=== PATIENT | male | born 1970 | race Two or more races ===

== ENCOUNTER 2023-06-24 20:14 | Inpatient (IN) | payer BC, OTHER ==
[~2023-06-24] VITALS: Ht 165.1 cm; Wt 65.8 kg
[2023-06-24 20:00] VITALS: BP 140/83; TEMP 98; O2SAT 99
[2023-06-24] MEDS ORDERED: REMEDY ESSENTIAL ZINC PASTE 113 GM TOP PRN (22:00)
[2023-06-24] MEDS ORDERED: ASPI81TA31 PO (23:13)
[2023-06-24] MEDS ORDERED: FLUC100T8 PO (23:13)
[2023-06-24] MEDS ORDERED: LORA0.5T48 IJ (23:13)
[2023-06-24] MEDS ORDERED: MAG-89 PO (23:13)
[2023-06-24] MEDS ORDERED: MAGN400O6 PO (23:13)
[2023-06-24] MEDS ORDERED: HYDR-4075 IVP (23:13)
[2023-06-24] MEDS ORDERED: ONDA4VIA52 IM/IV (23:13)
[2023-06-24] MEDS ORDERED: LEVE500T83 PO (23:13)
[2023-06-24] MEDS ORDERED: IPRA0.2S48 NEB (23:13)
[2023-06-24] MEDS ORDERED: ACET120S39 RC (23:13)
[2023-06-24] MEDS ORDERED: ALBU1.257 NEB (23:13)
[2023-06-24] MEDS ORDERED: ATOR40TA PO (23:13)
[2023-06-24] MEDS ORDERED: PANT40TA49 PO (23:13)
[2023-06-24] MEDS ORDERED: ACET325T53 PO (23:13)
[2023-06-24] MEDS ORDERED: ENOX40DI SQ (23:13)
[2023-06-25] MEDS ORDERED: OXYCODONE/APAP 5-325 MG TABLET PO PRN (01:45)
[2023-06-25] MEDS: OXYCODONE HCL 5 MG TABLET PO PRN ×2 (10:13→20:39)
[2023-06-25] MEDS: levETIRAcetam 500 MG TABLET PO SCH (16:55)
[2023-06-25] MEDS ORDERED: Medication Not On Formulary EA (Levetiracetam 500 MG) PO SCH (17:00)
[2023-06-25] MEDS: ALBUTEROL SULFATE 1.25 MG/3 ML NEBU NEB SCH ×2 (17:12→20:04)
[2023-06-25] MEDS: FLUCONAZOLE 100 MG TABLET PO SCH (17:36)
[2023-06-25 19:55] VITALS: O2SAT 98
[2023-06-25 20:06] VITALS: O2SAT 99
[2023-06-25 20:10] VITALS: BP 142/83; TEMP 99.2; O2SAT 97; O2SAT 98
[2023-06-25] MEDS: ATORVASTATIN 40 MG TABLET PO SCH (20:38)
[2023-06-26] VITALS (15 sets, daily range): BP systolic 125–140; BP diastolic 77–80; TEMP 98.4–100.1; O2SAT 95–100
[2023-06-26] MEDS: ALBUTEROL SULFATE 1.25 MG/3 ML NEBU NEB SCH ×8 (00:37→23:05)
[2023-06-26] MEDS: ACETAMINOPHEN 325 MG TABLET PO PRN ×2 (04:39→13:43)
[2023-06-26] MEDS: PANTOPRAZOLE SODIUM 40 MG TABLET.DR PO SCH (06:36)
[2023-06-26] MEDS: levETIRAcetam 500 MG TABLET PO SCH ×2 (08:20→17:28)
[2023-06-26] MEDS: FLUCONAZOLE 100 MG TABLET PO SCH (08:20)
[2023-06-26] MEDS: OXYCODONE HCL 5 MG TABLET PO PRN (08:21)
[2023-06-26] MEDS: ASPIRIN 81 MG TAB.CHEW PO SCH (08:48)
[2023-06-26] MEDS: SODIUM HYPOCHLORITE 0.125% (QUARTER STRENGTH) 473 ML BOTTLE TP SCH (11:31)
[2023-06-26] MEDS: MEDIHONEY= THERAHONEY 1.5 OZ TUBE TOP SCH (11:31)
[2023-06-26] MEDS: ATORVASTATIN 40 MG TABLET PO SCH (20:54)
[2023-06-27] VITALS (12 sets, daily range): BP systolic 116–143; BP diastolic 69–88; TEMP 98–99.5; O2SAT 95–100
[2023-06-27] MEDS: ACETAMINOPHEN 325 MG TABLET PO PRN (00:13)
[2023-06-27] MEDS: OXYCODONE HCL 5 MG TABLET PO PRN ×3 (00:22→21:03)
[2023-06-27] MEDS: ALBUTEROL SULFATE 1.25 MG/3 ML NEBU NEB SCH ×6 (03:39→19:48)
[2023-06-27] MEDS: PANTOPRAZOLE SODIUM 40 MG TABLET.DR PO SCH (05:58)
[2023-06-27] MEDS: MEDIHONEY= THERAHONEY 1.5 OZ TUBE TOP SCH (09:30)
[2023-06-27] MEDS: ASPIRIN 81 MG TAB.CHEW PO SCH (09:31)
[2023-06-27] MEDS: levETIRAcetam 500 MG TABLET PO SCH ×2 (09:31→18:08)
[2023-06-27] MEDS: FLUCONAZOLE 100 MG TABLET PO SCH (09:31)
[2023-06-27] MEDS: SODIUM HYPOCHLORITE 0.125% (QUARTER STRENGTH) 473 ML BOTTLE TP SCH (09:31)
[2023-06-27] MEDS: METHYL SALICYLATE/MENTHOL CREAM 28 GM TUBE TOP SCH ×2 (15:35→18:08)
[2023-06-27] MEDS: ATORVASTATIN 40 MG TABLET PO SCH (21:02)
[2023-06-28] VITALS (19 sets, daily range): BP systolic 118–145; BP diastolic 58–86; TEMP 98.2–99.4; O2SAT 93–100
[2023-06-28] MEDS: ALBUTEROL SULFATE 1.25 MG/3 ML NEBU NEB SCH ×6 (00:06→20:44)
[2023-06-28] MEDS: ACETAMINOPHEN 325 MG TABLET PO PRN (01:14)
[2023-06-28] MEDS: PANTOPRAZOLE SODIUM 40 MG TABLET.DR PO SCH (06:45)
[2023-06-28] MEDS: ASPIRIN 81 MG TAB.CHEW PO SCH (08:54)
[2023-06-28] MEDS: levETIRAcetam 500 MG TABLET PO SCH ×2 (08:54→17:58)
[2023-06-28] MEDS: METHYL SALICYLATE/MENTHOL CREAM 28 GM TUBE TOP SCH ×3 (08:55→17:59)
[2023-06-28] MEDS: MEDIHONEY= THERAHONEY 1.5 OZ TUBE TOP SCH (08:56)
[2023-06-28] MEDS: SODIUM HYPOCHLORITE 0.125% (QUARTER STRENGTH) 473 ML BOTTLE TP SCH (08:57)
[2023-06-28] MEDS: OXYCODONE HCL 5 MG TABLET PO PRN (20:36)
[2023-06-28] MEDS: ATORVASTATIN 40 MG TABLET PO SCH (20:36)
[2023-06-29] VITALS (15 sets, daily range): BP systolic 125–148; BP diastolic 71–75; TEMP 98–98.7; O2SAT 96–100
[2023-06-29] MEDS: ALBUTEROL SULFATE 1.25 MG/3 ML NEBU NEB SCH ×7 (00:14→23:30)
[2023-06-29] MEDS: PANTOPRAZOLE SODIUM 40 MG TABLET.DR PO SCH (06:04)
[2023-06-29] MEDS: OXYCODONE HCL 5 MG TABLET PO PRN (08:02)
[2023-06-29] MEDS: ASPIRIN 81 MG TAB.CHEW PO SCH (08:03)
[2023-06-29] MEDS: levETIRAcetam 500 MG TABLET PO SCH ×2 (08:03→16:22)
[2023-06-29] MEDS: METHYL SALICYLATE/MENTHOL CREAM 28 GM TUBE TOP SCH ×3 (09:08→16:22)
[2023-06-29] MEDS: SODIUM HYPOCHLORITE 0.125% (QUARTER STRENGTH) 473 ML BOTTLE TP SCH (09:09)
[2023-06-29] MEDS: MEDIHONEY= THERAHONEY 1.5 OZ TUBE TOP SCH (09:09)
[2023-06-29] MEDS: ATORVASTATIN 40 MG TABLET PO SCH (20:25)
[2023-06-30] VITALS (14 sets, daily range): BP systolic 128–149; BP diastolic 60–77; TEMP 98–98.4; O2SAT 96–100
[2023-06-30] MEDS: ALBUTEROL SULFATE 1.25 MG/3 ML NEBU NEB SCH ×6 (03:56→23:30)
[2023-06-30] MEDS: PANTOPRAZOLE SODIUM 40 MG TABLET.DR PO SCH (06:28)
[2023-06-30] MEDS: ASPIRIN 81 MG TAB.CHEW PO SCH (08:13)
[2023-06-30] MEDS: levETIRAcetam 500 MG TABLET PO SCH ×2 (08:13→16:52)
[2023-06-30] MEDS: METHYL SALICYLATE/MENTHOL CREAM 28 GM TUBE TOP SCH ×3 (08:36→16:52)
[2023-06-30] MEDS: MEDIHONEY= THERAHONEY 1.5 OZ TUBE TOP SCH (08:37)
[2023-06-30] MEDS: SODIUM HYPOCHLORITE 0.125% (QUARTER STRENGTH) 473 ML BOTTLE TP SCH (08:37)
== END 2023-06-30 23:58 | disposition left against medical advice (07) | DRG 100 ==
PROVIDERS: ADMIT Physical Medicine & Rehabilitation Pain Medicine; ATTEND Physical Medicine & Rehabilitation Pain Medicine
DX: G40.401 Other generalized epilepsy and epileptic syndromes, not intractable, with status epilepticus (principal); J18.9 Pneumonia, unspecified organism; J96.00 Acute respiratory failure, unspecified whether with hypoxia or hypercapnia; B37.0 Candidal stomatitis; E44.0 Moderate protein-calorie malnutrition; G93.40 Encephalopathy, unspecified; N17.9 Acute kidney failure, unspecified; M62.82 Rhabdomyolysis; D64.9 Anemia, unspecified; D75.839 Thrombocytosis, unspecified; G93.89 Other specified disorders of brain; Z86.73 Personal history of transient ischemic attack (TIA), and cerebral infarction without residual deficits; M48.02 Spinal stenosis, cervical region; I51.7 Cardiomegaly; M89.8X9 Other specified disorders of bone, unspecified site; S43.004D Unspecified dislocation of right shoulder joint, subsequent encounter; V89.2XXD Person injured in unspecified motor-vehicle accident, traffic, subsequent encounter
CPT/HCPCS: 94640; 94664; 94760; 97535-GO-CO; A6213